=== PATIENT | male | born 1970 | race Caucasian/White ===

== ENCOUNTER → 2017-07-09 08:35 | Outpatient (CLI) | payer OTHER, SELFPAY ==
[2017-07-09 09:58] LABS: Eosinophils Percent Auto 1.8 % (2-4); Hematocrit 41.9 % (41-53); Hemoglobin 14.3 g/dL (13.5-17.5); Lymphocytes Percent Auto 28.2 % (25-40); Mean Corpuscular HGB Conc 34.2 % (30-36); Mean Corpuscular Hemoglobin 31.1 PG (26-34); Mean Corpuscular Volume 90.8 fL (80-100); Monocytes Percent Auto 8.8 % (3-14); Neutrophils Absolute Auto 3300 /uL (3000-5900); Neutrophils Percent Auto 60.2 % (50-75); Platelet Count 140 X10^3/uL (150-400); Red Blood Cell Count 4.61 X10^6/uL (4.5-5.9); Red Cell Distribution Width 12.9 % (11.6-14.8); White Blood Cell Count 5.5 X10^3/uL (4.5-11.0)
[2017-07-09 10:21] LABS: Alanine Aminotransferase 44 IU/L (21-72); Albumin 4.3 g/dL (3.5-5.0); Albumin Globulin Ratio 1.5 (1.0-2.8); Alkaline Phosphatase 49 U/L (38-126); Aspartate Aminotransferase 34 IU/L (17-59); Bilirubin Total 0.6 mg/dL (0.2-1.3); Calcium 9.5 mg/dL (8.4-10.2); Estimated Glomerular Filt Rate > 60.0 mL/min (>60); Globulin 2.9 g/dL (1.7-4.1); Glucose 89 mg/dL (70-100); HEMOLYSIS 21 (0-50); Lactate Dehydrogenase 368 U/L (313-618); Potassium 4.7 mmol/L (3.4-5.1); Sodium 142 mmol/L (137-145); Total Protein 7.2 g/dL (6.3-8.2)
[2017-07-09 10:22] LABS: Add Manual Diff / Slide Review SLIDE REVIEW
[2017-07-13 13:40] LABS: Alpha Fetoprotein 1.6 ng/mL (< 6.1)
[2017-07-21 20:55] LABS: HCG Quantitative /Beta subunit < 2.39 mIU/mL (<2.39)
== END ==
PROVIDERS: Family Provider Family Medicine; PCP Family Medicine; Visit Provider Nurse Practitioner Gerontology
DX: C62.92 Malignant neoplasm of left testis, unspecified whether descended or undescended (principal)
CPT/HCPCS: 36415; 80053; 82105; 83615; 84702; 85025

== ENCOUNTER → 2017-07-09 09:04 | Outpatient (CLI) | payer OTHER, SELFPAY ==
--- NOTE | 2017-07-09 09:06 | DI.RAD.S_ITS ---
PROCEDURE: XR CHEST 2V INDICATIONS: LAB DRAW/MALIGNANT NEOPLASM OF LEFT TESTIS TECHNIQUE: 2 views of the chest were acquired. COMPARISON: [facility], , CHEST 2 VIEW, 06/26/2016, 8:51. FINDINGS: Surgical changes and devices: Numerous surgical clips over the epigastric region. Lungs and pleura: No pleural effusions or pneumothorax. Lungs are clear. There is an asymmetrical radiodensity in the left apex above the first anterior rib, likely artifact but not seen previously and indeterminate. Apical lordotic view is suggested. Mediastinum: Mediastinal contours are normal. Heart size is normal. Bones and chest wall: No suspicious bony abnormalities. Soft tissues appear unremarkable. IMPRESSION: Probable normal chest. Ill-defined radiodensity left apex for which apical lordotic view is suggested. Dictated by: Eliazar Stafford M.D. on 07/09/2017 at 9:39 Approved by: Eliazar Stafford M.D. on 07/09/2017 at 9:42
--- NOTE | 2017-07-09 11:25 | PC.NURSE ---
labs noted, sees provider in 1 week.
--- NOTE | 2017-07-14 16:29 | PC.NURSE ---
Per Rita's request, informed pt that she would like one more view done for CXR. Requested pt have this done prior to his july 16 appt this Wednesday. He said he will try to do this. Per Rita, order is in computer.
== END ==
PROVIDERS: Family Provider Family Medicine; PCP Family Medicine; Visit Provider Nurse Practitioner Gerontology
DX: C62.92 Malignant neoplasm of left testis, unspecified whether descended or undescended (principal)
CPT/HCPCS: 36415; 71046; 80053; 82105; 83615; 84702; 85025

== ENCOUNTER → 2017-07-15 15:39 | Outpatient (CLI) | payer OTHER, SELFPAY ==
--- NOTE | 2017-07-15 | DI.RAD.S_ITS ---
PROCEDURE: XR CHEST 1V INDICATIONS: MALIGNANT NEOPLASM OF TESTIS TECHNIQUE: One view of the chest was acquired. COMPARISON: [facility], CR, XR CHEST 2V, 07/09/2017, 8:47. FINDINGS: Modified apical lordotic chest image shows no evidence of soft tissue mass in the left apex. IMPRESSION: Lung apices are clear. Dictated by: Eliazar Stafford M.D. on 07/15/2017 at 16:06 Approved by: Eliazar Stafford M.D. on 07/15/2017 at 16:08
== END ==
PROVIDERS: Family Provider Family Medicine; PCP Family Medicine; Visit Provider Nurse Practitioner Gerontology
DX: C62.90 Malignant neoplasm of unspecified testis, unspecified whether descended or undescended (principal)
CPT/HCPCS: 71045

== ENCOUNTER 2018-12-30 11:25 | Emergency (ER) | payer OTHER, SELFPAY ==
[2018-12-30 11:44] VITALS: BP 148/91; PULSE 74; RESP 18; TEMP 36.7; O2SAT 98
[2018-12-30 14:44] LABS: Bacteria Urine None Seen; RBC Urine None Seen (0-5/HPF); WBC Urine None Seen (0-5/HPF)
[2018-12-30 14:51] LABS: Appearance Urine UA CLEAR; Bilirubin Urine UA NEGATIVE (NEGATIVE); Color Urine UA YELLOW; Glucose Urine UA NEGATIVE (Negative); Ketones Urine UA NEGATIVE (NEGATIVE); Leukocyte Esterase Urine UA NEGATIVE (NEGATIVE); Nitrite Urine UA NEGATIVE (Negative); Occult Blood Urine UA NEGATIVE (Negative); Protein Urine UA NEGATIVE (Negative); Specific Gravity Urine UA <=1.005 (1.000-1.035); Urobilinogen Urine UA 0.2 E.U./dL (0.2)
[2018-12-30] MEDS: LIDOCAINE JELLY 2% 30 ML TOP (14:57)
[2018-12-30 15:03] LABS: Culture Indicated Urine Cult Not Indicated
[2018-12-30 15:04] LABS: Add Manual Diff / Slide Review NO; Basophils Absolute Auto 0 /uL (0-100); Basophils Percent Auto 0.4 % (0-2); Eosinophils Absolute Auto 100 /uL (0-450); Eosinophils Percent Auto 0.7 % (2-4); Hematocrit 42.5 % (41-53); Hemoglobin 14.3 g/dL (13.5-17.5); Lymphocytes Absolute Auto 1500 /uL (1100-4500); Lymphocytes Percent Auto 14.7 % (25-40); Mean Corpuscular HGB Conc 33.7 % (30-36); Mean Corpuscular Hemoglobin 31.1 PG (26-34); Mean Corpuscular Volume 92.4 fL (80-100); Monocytes Absolute Auto 500 /uL (0-900); Monocytes Percent Auto 4.9 % (3-14); Neutrophils Absolute Auto 8200 /uL (1500-7000); Neutrophils Percent Auto 79.3 % (50-75); Platelet Count 159 X10^3/uL (150-400); Red Cell Distribution Width 13.1 % (11.6-14.8); White Blood Cell Count 10.4 X10^3/uL (4.5-11.0)
[2018-12-30 15:16] LABS: Alanine Aminotransferase 34 IU/L (<50); Albumin 4.5 g/dL (3.5-5.0); Albumin Globulin Ratio 1.7 (1.0-2.8); Alkaline Phosphatase 50 U/L (38-126); Aspartate Aminotransferase 29 IU/L (17-59); BUN Creatinine Ratio 17.5 (6-22); Bilirubin Total 0.6 mg/dL (0.2-1.3); Blood Urea Nitrogen 14 mg/dL (9-20); Calcium 9.3 mg/dL (8.4-10.2); Carbon Dioxide 25 mmol/L (22-32); Chloride 106 mmol/L (98-107); Estimated Glomerular Filt Rate > 60.0 mL/min (>60); Globulin 2.6 g/dL (1.7-4.1); Glucose 101 mg/dL (70-100); HEMOLYSIS < 15 (0-50); Sodium 140 mmol/L (137-145); Total Protein 7.1 g/dL (6.3-8.2)
--- NOTE | 2018-12-30 15:26 | DI.CT.S_ITS ---
PROCEDURE: CT ABDOMEN PELVIS W CON INDICATIONS: severe rectal pain TECHNIQUE: After the administration of intravenous contrast, 5 mm thick sections acquired from the diaphragm to the symphysis. 5 mm coronal and sagittal reformats were acquired. For radiation dose reduction, the following was used: automated exposure control, adjustment of mA and/or kV according to patient size. COMPARISON: None. FINDINGS: Image quality: Excellent. ABDOMEN: Lung bases: Lung bases are clear. Heart size is normal. Solid organs: Liver is normal in size and enhancement. Gallbladder is unremarkable. Biliary system is non dilated. Pancreas enhances normally. Spleen is normal in size and enhancement. No adrenal nodules. Kidneys demonstrate normal size and enhancement, without hydronephrosis. Peritoneum and bowel: Focal area of thickening in the upper to mid rectum, (6/33). No enlargement or rectal lymph nodes identified. No free fluid. No acute inflammatory change identified. No mural enhancement identified. No small bowel obstruction. No pneumoperitoneum. Nodes and vessels: No retroperitoneal or mesenteric adenopathy by size criteria. Surgical clips from prior retroperitoneal lymph node dissection. Aorta and inferior vena cava are normal in size. Miscellaneous: No ventral hernias. PELVIS: Genitourinary: Bladder wall thickness is normal. Miscellaneous: No inguinal hernias or adenopathy. Bones: No suspicious bony lesions. No vertebral body compression fractures. IMPRESSION: 1. Focal thickening in the upper to mid rectum. This could be due to rectal cancer. Recommend proctoscopy and/or rectal MRI. 2. No enlargement or rectal lymph nodes. Findings of prior retroperitoneal lymph node dissection. 3. No metastatic disease identified. Comment: Findings were discussed with Dilma Newton at the time of dictation. Dictated by: Derikc Smith M.D. on 12/30/2018 at 16:02 Approved by: Derick Smith M.D. on 12/30/2018 at 16:11
--- NOTE | 2018-12-30 16:22 | ED_ITS ---
HPI - Abdominal Pain <KAUSHAL Moran - Last Filed: 12/30/18 21:30> General Chief Complaint: Abdominal Pain Stated Complaint: EXTREME PAIN BOWL MOVEMENT Time Seen by Provider: 12/30/18 13:41 Source: patient Mode of arrival: Ambulatory Limitations: no limitations History of Present Illness HPI narrative: 48-year-old male nonsmoker with history of testicular cancer presents with his for chief complaint of painful rectum x7 days. He was evaluated at his PCPs office, who referred him to the emergency department. He denies any fevers nausea vomiting or diarrhea. He states that his rectum hurts all the time, worse with sitting and bowel movements. He denies any dysuria urgency or frequency. Denies any abdominal pain. He states that the pain is nonradiating. He took a few doses of ibuprofen, but had no improvement. He denies any constipation, but states that having bowel movements has been painful, so he does not want to Related Data Home Medications Medication Instructions Recorded Confirmed [id number] K-lycop 1 tab PO DAILY 12/30/18 12/30/18 [Men's Multivitamin] Previous Rx's Medication Instructions Recorded ketorolac 10 mg PO TID #15 tab 12/30/18 Allergies Allergy/AdvReac Type Severity Reaction Status Date / Time No Known Drug Allergies Allergy Verified 12/30/18 11:47 Review of Systems <KAUSHAL Moran - Last Filed: 12/30/18 21:30> Review of Systems Narrative: GENERAL: Denies chills, fatigue, malaise, fever, sweats. HEENT: Denies sinus pain, ear pain, sore throat, difficulty swallowing, dizziness. RESPIRATORY: Denies dyspnea, cough, wheezing, hemoptysis, sputum. CARDIOVASCULAR: Denies chest pain, palpitations, orthopnea, edema, GASTROINTESTINAL: See HPI : Denies dysuria, frequency, incontinence, hematuria, urinary retention. MUSCULOSKELETAL: denies weakness, joint pain, or bony pain SKIN: Denies rash, skin lesions, or other NEUROLOGIC: Denies weakness, headache, numbness, change in speech, confusion, seizures, incoordination. PSYCHIATRIC: No concerning psychosocial issues. 12 point review of systems is negative except for those stated above Patient History <KAUSHAL Moran - Last Filed: 12/30/18 21:30> Medical History (Updated 12/30/18 @ 21:20 by SHELIA Moran) Testicular cancer (Acute) Social History Smoking Status: Never smoker alcohol intake frequency: 0-2 drinks per day Substance Use Type: does not use Exam <SHELIA Moran - Last Filed: 12/30/18 21:30> Narrative Exam Narrative: GENERAL: This is a well-nourished, well-developed patient, appears uncomfortable HEAD: Atraumatic. Normocephalic. No temporal or scalp tenderness. EYES: Pupils equal round and reactive. Extraocular motions intact. No scleral icterus. No injection or drainage. ENT: Nose without bleeding, purulent drainage or septal hematoma. Throat without erythema, tonsillar hypertrophy or exudate. Uvula midline. Airway patent. NECK: Trachea midline. No JVD or lymphadenopathy. Supple, nontender, no meningeal signs. CARDIOVASCULAR: Regular rate and rhythm without murmurs, gallops, or rubs. RESPIRATORY: Clear to auscultation. Breath sounds equal bilaterally. No wheezes, rales, or rhonchi. No cough. No increased respiratory effort. No accessory GASTROINTESTINAL: Abdomen soft, non-tender, nondistended. No hepato-splenome viviane, or palpable masses. No guarding. EXTREMITIES: No clubbing, cyanosis, or edema. No joint tenderness, effusion, or edema noted. BACK: Nontender without deformity or crepitance. No flank tenderness. NEURO: AOx3. SKIN: No rash or erythema. Rectal: With Kelsie RN at bedside, no obvious internal or external hernias. No evidence of external abscess. No pain to prostate palpation Initial Vital Signs Initial Vital Signs: Vital Signs Temperature 98.0 F 12/30/18 11:44 Pulse Rate 74 12/30/18 11:44 Respiratory Rate 18 12/30/18 11:44 Blood Pressure 148/91 H 12/30/18 11:44 Pulse Oximetry 98 12/30/18 11:44 <Tracy Tee DO - Last Filed: 12/31/18 01:58> Initial Vital Signs Initial Vital Signs: Vital Signs Temperature 98.0 F 12/30/18 11:44 Pulse Rate 74 12/30/18 11:44 Respiratory Rate 18 12/30/18 11:44 Blood Pressure 148/91 H 12/30/18 11:44 Pulse Oximetry 98 12/30/18 11:44 Course <SHELIA Moran - Last Filed: 12/30/18 21:30> Orders Ordered: Discontinued Medications Hydrocodone Bitart/Acetaminophen (Vicodin Prepack) 1 bottle MISC SEEINSTR ONE Stop: 12/30/18 21:14 Last Admin: 12/30/18 21:17 Dose: 1 bottle Documented by: FREDERICKEED Ketorolac Tromethamine (Toradol) 30 mg IV NOW ONE Stop: 12/30/18 17:15 Last Admin: 12/30/18 17:41 Dose: 30 mg Documented by: KIKE Ketorolac Tromethamine (Toradol 10mg Prepack) 1 bottle MISC SEEINSTR ONE Stop: 12/30/18 21:14 Last Admin: 12/30/18 21:17 Dose: 1 bottle Documented by: LREED Lidocaine HCl (Xylocaine Jelly 2%) 1 ml TOP NOW ONE Stop: 12/30/18 14:17 Last Admin: 12/30/18 14:57 Dose: 1 ml Documented by: KIKE Vital Signs Vital signs: Vital Signs - 8 hr 12/30/18 19:08 12/30/18 21:31 Pulse Rate 80 82 Respiratory Rate 16 18 Blood Pressure [Right Arm] 145/89 H 145/88 H Pulse Oximetry 98 98 <Tracy Tee DO - Last Filed: 12/31/18 01:58> Orders Ordered: Discontinued Medications Hydrocodone Bitart/Acetaminophen (Vicodin Prepack) 1 bottle MISC SEEINSTR ONE Stop: 12/30/18 21:14 Last Admin: 12/30/18 21:17 Dose: 1 bottle Documented by: FREDERICKEED Ketorolac Tromethamine (Toradol) 30 mg IV NOW ONE Stop: 12/30/18 17:15 Last Admin: 12/30/18 17:41 Dose: 30 mg Documented by: KIKE Ketorolac Tromethamine (Toradol 10mg Prepack) 1 bottle MISC SEEINSTR ONE Stop: 12/30/18 21:14 Last Admin: 12/30/18 21:17 Dose: 1 bottle Documented by: FREDERICKEED Lidocaine HCl (Xylocaine Jelly 2%) 1 ml TOP NOW ONE Stop: 12/30/18 14:17 Last Admin: 12/30/18 14:57 Dose: 1 ml Documented by: KIKE Vital Signs Vital signs: Vital Signs - 8 hr 12/30/18 19:08 12/30/18 21:31 Pulse Rate 80 82 Respiratory Rate 16 18 Blood Pressure [Right Arm] 145/89 H 145/88 H Pulse Oximetry 98 98 MDM - Abdominal Pain <Dilma Newton, HAND POTTER-BC - Last Filed: 12/30/18 21:30> Lab Data Result diagrams: 12/30/18 14:55 12/30/18 14:55 Labs: Lab Results 12/30/18 12/30/18 12/30/18 Range/Units 14:40 14:55 14:55 WBC 10.4 (4.5-11.0) X10^3/uL RBC 4.60 (4.5-5.9) X10^6/uL Hgb 14.3 (13.5-17.5) g/dL Hct 42.5 (41-53) % MCV 92.4 (80-100) fL MCH 31.1 (26-34) PG MCHC 33.7 (30-36) % RDW 13.1 (11.6-14.8) % Plt Count 159 (150-400) X10^3/uL Neut % (Auto) 79.3 H (50-75) % Lymph % (Auto) 14.7 L (25-40) % [place] % (Auto) 4.9 (3-14) % Eos % (Auto) 0.7 L (2-4) % Baso % (Auto) 0.4 (0-2) % Neut # (Auto) 8200 H (3197-0309) /uL Lymph # (Auto) 1500 (8343-0667) /uL [place] # (Auto) 500 (0-900) /uL Eos # (Auto) 100 (0-450) /uL Baso # (Auto) 0 (0-100) /uL Sodium 140 (137-145) mmol/L Potassium 4.0 (3.4-5.1) mmol/L Chloride 106 (98-107) mmol/L Carbon Dioxide 25 (22-32) mmol/L BUN 14 (9-20) mg/dL Creatinine 0.80 (0.66-1.25) mg/dL Estimated GFR > 60.0 (>60) mL/min BUN/Creatinine Ratio 17.5 (6-22) Glucose 101 H (70-100) mg/dL Calcium 9.3 (8.4-10.2) mg/dL Total Bilirubin 0.6 (0.2-1.3) mg/dL AST 29 (17-59) IU/L ALT 34 (<50) IU/L Alkaline Phosphatase 50 (38-126) U/L Total Protein 7.1 (6.3-8.2) g/dL Albumin 4.5 (3.5-5.0) g/dL Globulin 2.6 (1.7-4.1) g/dL Albumin/Globulin Ratio 1.7 (1.0-2.8) Urine Color Yellow Urine Appearance Clear Urine pH 7.0 (4.5-8.0) Ur Specific Holl[place] <=1.005 (1.000-1.035) Urine Protein Negative (Negative) Urine Glucose (UA) Negative (Negative) g/dL Urine Ketones Negative (NEGATIVE) Urine Occult Blood Negative (Negative) Urine Nitrate Negative (Negative) Urine Bilirubin Negative (NEGATIVE) Urine Urobilinogen 0.2 (0.2) E.U./dL Ur Leukocyte Esterase Negative (NEGATIVE) Urine RBC None seen (0-5/HPF) Urine WBC None seen (0-5/HPF) Urine Bacteria None seen (None) Ur Culture Indicated? Cult not indicated Imaging Data CT scan - abdomen: Radiologist's impression: [place] [address] CT Scan Report Signed Patient: Bennie Barth R#: [id number] : 1970Acct:[id number] Age/Sex: 48 / MDate of Service: 12/30/18 Loc: ED Accession Number: [id number] Procedure: CT abdomen pelvis w con Ordering Provider: Dilma Newton- PROCEDURE: CT ABDOMEN PELVIS W CON INDICATIONS: severe rectal pain TECHNIQUE: After the administration of intravenous contrast, 5 mm thick sections acquired from the diaphragm to the symphysis. 5 mm coronal and sagittal reformats were acquired. For radiation dose reduction, the following was used: automated exposure control, adjustment of mA and/or kV according to patient size. COMPARISON: None. FINDINGS: Image quality: Excellent. ABDOMEN: Lung bases: Lung bases are clear. Heart size is normal. Solid organs: Liver is normal in size and enhancement. Gallbladder is unremarkable. Biliary system is non dilated. Pancreas enhances normally. Spleen is normal in size and enhancement. No adrenal nodules. Kidneys demonstrate normal size and enhancement, without hydronephrosis. Peritoneum and bowel: Focal area of thickening in the upper to mid rectum, (6/33). No enlargement or rectal lymph nodes identified. No free fluid. No acute inflammatory change identified. No mural enhancement identified. No small bowel obstruction. No pneumoperitoneum. Nodes and vessels: No retroperitoneal or mesenteric adenopathy by size criteria. Surgical clips from prior retroperitoneal lymph node dissection. Aorta and in ferior vena cava are normal in size. Miscellaneous: No ventral hernias. PELVIS: Genitourinary: Bladder wall thickness is normal. Miscellaneous: No inguinal hernias or adenopathy. Bones: No suspicious bony lesions. No vertebral body compression fractures. IMPRESSION: 1. Focal thickening in the upper to mid rectum. This could be due to rectal cancer. Recommend proctoscopy and/or rectal MRI. 2. No enlargement or rectal lymph nodes. Findings of prior retroperitoneal lymph node dissection. 3. No metastatic disease identified. Comment: Findings were discussed with Dilma Newton at the time of dictation. Dictated by: Derick Smith M.D. on 12/30/2018 at 16:02 Approved by: Derick Smith M.D. on 12/30/2018 at 16:11 [facility] Narrative Medical decision making narrative: The patient is a 48-year-old male who presents with a chief complaint of rectal pain and pressure. His urine is clean, it is no pain to prostate palpation. This rules out prostatitis. He has no obvious hemorrhoid or abscess on exam. CT scan illustrate rectal inflammation, and suggests a rectal MRI in order to help rule out rectal cancer. This is concerning as the patient has a history of testicular cancer. The patient elected to have a MRI done in the emergency department as one was able to be scheduled. At 2100, I spoke with Radiology who states that the read will not be available tonight. I spoke with the patient and he requested to go home and I will call him with results tomorrow. Also contacted the patient's on-call regarding the patient's evaluation. I discussed at length measures to help prevent constipation including MiraLax, docusate, senna. Patient responded well to Toradol in the emergency department, so I gave him her prescription thereof with strict instructions down combined with any NSAIDs. I did give him a small take-home pack of [place]. Encourage PCP follow-up. Patient and have no questions or concerns upon discharge. State understanding of return precautions as well as importance of follow-up care. I spoke with Dr. Morgan regarding the patient prior to leaving the emergency department. <Tracy Tee, DO - Last Filed: 12/31/18 01:58> Lab Data Labs: Lab Results 12/30/18 12/30/18 12/30/18 Range/Units 14:40 14:55 14:55 WBC 10.4 (4.5-11.0) X10^3/uL RBC 4.60 (4.5-5.9) X10^6/uL Hgb 14.3 (13.5-17.5) g/dL Hct 42.5 (41-53) % MCV 92.4 (80-100) fL MCH 31.1 (26-34) PG MCHC 33.7 (30-36) % RDW 13.1 (11.6-14.8) % Plt Count 159 (150-400) X10^3/uL Neut % (Auto) 79.3 H (50-75) % Lymph % (Auto) 14.7 L (25-40) % B[place] % (Auto) 4.9 (3-14) % Eos % (Auto) 0.7 L (2-4) % Baso % (Auto) 0.4 (0-2) % Neut # (Auto) 8200 H (8039-7081) /uL Lymph # (Auto) 1500 (7402-9806) /uL [place] # (Auto) 500 (0-900) /uL Eos # (Auto) 100 (0-450) /uL Baso # (Auto) 0 (0-100) /uL Sodium 140 (137-145) mmol/L Potassium 4.0 (3.4-5.1) mmol/L Chloride 106 (98-107) mmol/L Carbon Dioxide 25 (22-32) mmol/L BUN 14 (9-20) mg/dL Creatinine 0.80 (0.66-1.25) mg/dL Estimated GFR > 60.0 (>60) mL/min BUN/Creatinine Ratio 17.5 (6-22) Glucose 101 H (70-100) mg/dL Calcium 9.3 (8.4-10.2) mg/dL Total Bilirubin 0.6 (0.2-1.3) mg/dL AST 29 (17-59) IU/L ALT 34 (<50) IU/L Alkaline Phosphatase 50 (38-126) U/L Total Protein 7.1 (6.3-8.2) g/dL Albumin 4.5 (3.5-5.0) g/dL Globulin 2.6 (1.7-4.1) g/dL Albumin/Globulin Ratio 1.7 (1.0-2.8) Urine Color Yellow Urine Appearance Clear Urine pH 7.0 (4.5-8.0) Ur Specific Holl[place] <=1.005 (1.000-1.035) Urine Protein Negative (Negative) Urine Glucose (UA) Negative (Negative) g/dL Urine Ketones Negative (NEGATIVE) Urine Occult Blood Negative (Negative) Urine Nitrate Negative (Negative) Urine Bilirubin Negative (NEGATIVE) Urine Urobilinogen 0.2 (0.2) E.U./dL Ur Leukocyte Esterase Negative (NEGATIVE) Urine RBC None seen (0-5/HPF) Urine WBC None seen (0-5/HPF) Urine Bacteria None seen (None) Ur Culture Indicated? Cult not indicated Discharge Plan Departure Patient Disposition: Home Clinical Impression: Anal or rectal pain Discharge Date/Time: 12/30/18 21:31 Instructions: Constipation (Alternative Therapy), DI for Constipation Activity Restrictions/Additional Instructions: Please follow up with primary care provider in the next few days. Your CT scan today shows rectal inflammation. There is no evidence of infection, diverticulitis, small-bowel obstruction abscess etc. Your urine sample is clean. As discussed, it would take long time to get a read of your MRI tonight, so I will call you with the results tomorrow. For your constipation, I recommend MiraLax, docusate, and senna. Docusate is a stool softener. Senna is a laxative. Please the sure that your well-hydrated and eat lots of fiber. I have given you a prescription of Toradol. This is an NSAID. Do not combine it with other NSAIDs such as Aleve or ibuprofen. I suggest taking it with some food, as it can irritate your stomach. I have sent this prescription to [facility]. Prescriptions: New ketorolac 10 mg tablet 10 mg PO TID Qty: 15 RF: 0 No Action Men's Multivitamin 400-20-300 mcg Tablet 1 tab PO DAILY RF: 0 Referrals: Raymundo Lynch MD [Primary Care Provider] -
--- NOTE | 2018-12-30 16:47 | DI.MRI.S_ITS ---
PROCEDURE: MR PELIS WO/W CON INDICATIONS: Abnormal CT. TECHNIQUE: Coronal HASTE, sagittal T2 FSE, axial T1 FSE, axial and coronal nonbreath-hold T2 FSE. Axial dynamic VIBE during administration of contrast. Post-contrast axial and coronal VIBE/2-D FLASH with fat saturation from the iliac crests to the symphysis. Optional diffusion weighted imaging and ADC may be performed. COMPARISON: [facility], CT, CT ABDOMEN PELVIS W CON, 12/30/2018, 15:41. FINDINGS: Image quality: Excellent. About 6.5 cm above the anorectal junction, there is a persistent area of fixed stricture for length of 1.8 cm. Questionable mildly T2 bright sessile lesion is seen (series 4 image 29). Postcontrast, there is moderate mucosal enhancement in this segment as well as a second area of rectal narrowing/spasm about 4 cm more cranial. There is no extension of enhancement through the muscularis. No spiculation of the perirectal fat. No perirectal lymph nodes or pelvic sidewall nodes. Patient is post left orchiectomy. No inguinal adenopathy or hernia. The urinary bladder is partially decompressed but the wall is normal thickness. The prostate gland appears normal. Osseous structures are normal in signal. Visible bowel loops are otherwise within normal limits IMPRESSION: 1. Questionable T1 rectal lesion approximately 6.5 cm above the anorectal junction versus mild mucosal inflammation. There is no evidence of disease extension through the muscularis or local adenopathy. Colonoscopy is recommended for further evaluation and possible tissue acquisition. 2. More questionable, second area of mucosal enhancement about 10 cm above the erect junction, most likely spasm although mucosal lesion is not excluded. 3. Post left orchiectomy. Dictated by: Antonia Pope M.D. on 12/30/2018 at 22:35 Approved by: Antonia Pope M.D. on 12/30/2018 at 22:57
[2018-12-30 16:58] VITALS: BP 151/97; PULSE 73; RESP 16; O2SAT 100
[2018-12-30] MEDS: KETOROLAC 60 MG/2 ML VIAL 30 MG IV (17:41)
[2018-12-30 17:45] VITALS: BP 156/99; PULSE 71; O2SAT 98
[2018-12-30 19:08] VITALS: BP 145/89; PULSE 80; RESP 16; O2SAT 98
--- NOTE | 2018-12-30 19:30 | PC.NURSE ---
Patient ambulatory around room. Drinking ice water. Denies needs at this time, awaiting MRI results
[2018-12-30] MEDS: HYDROCODONE/ACET 5/325 PREPACK 1 BOTTLE MISC (21:17)
[2018-12-30] MEDS: KETOROLAC 10MG PREPACK 1 BOTTLE MISC (21:17)
[2018-12-30 21:31] VITALS: BP 145/88; PULSE 82; RESP 18; O2SAT 98
== END 2018-12-30 21:31 | disposition home or self-care (01) ==
PROVIDERS: Emergency Provider Nurse Practitioner Family; Family Provider Family Medicine; PCP Family Medicine
DX: K62.89 Other specified diseases of anus and rectum (principal)
CPT/HCPCS: 36415; 72197; 74177; 80053; 81001; 85025; 96374; 99283; 99285; A9579; J1885

== ENCOUNTER 2019-01-04 14:16 | Day surgery (SDC) | payer OTHER, SELFPAY ==
[2019-01-04] VITALS (7 sets, daily range): BP systolic 147–163; BP diastolic 93–114; PULSE 70–83; RESP 10–96; TEMP 36.2–36.7; O2SAT 97–98; BMI 27.2
--- NOTE | 2019-01-04 15:00 | PM.PREOP ---
Pre-operative Note Interval Note History & Physical reviewed/Exam performed by Physician: Yes Changes to H&P: No H&P completed within 30 days and has changed as indicated here:: see note from yesterday
[2019-01-04] MEDS: LACTATED RINGERS 1,000 ML 100 ML IV ×2 (15:30→16:49)
[2019-01-04] MEDS: BUPIVACAINE 0.5% (PF) VIAL 30 ML INJ (16:30)
--- NOTE | 2019-01-04 16:44 | SUR.OPER ---
DRESSINGS: IODOFORM PACKING, 4 X 4'S ABD, MESH PANTS
--- NOTE | 2019-01-04 16:47 | PM.OP.1 ---
Operative Date/Time/Diagnoses Date of procedure: 01/04/19 Time of procedure: 16:48 Pre-op diagnosis: Perirectal pain and abnormal CT and MRI Post-op diagnosis: same Procedure & Clinicians Procedure: Flexible sigmoidoscopy. Exam under anesthesia and exploration into the intersphincteric so spit and perirectal space Same procedure as scheduled: Yes Indications: Severe rectal pain uncertain cause Click Yes if Unassisted: Yes Anesthesia Type: General Operative Notes Findings: No evidence of mucosal abnormality on flexible sigmoidoscopy to 30 cm. Fullness in the right rectal wall on palpation. On incision into the intersphincteric groove region and minimal dissection I dropped into a cavity which drained a small amount of clear fluid. There was no marcelino pus. Closure Type: not applicable Specimen(s): none sent Estimated Blood Loss (mL): 5 Blood products transfused: none Procedure in detail: Patient was placed supine on his bed and underwent general LMA anesthesia. Rectal exam was performed and colonoscope inserted and advanced to 30 cm. The there was some mucoid material but otherwise the colon was free of any stool whatsoever. The mucoid material was suctioned out and had an excellent view of the wall of the colon. I examined the colon from 30 cm out in re-examined the area from 20 cm out the lesion on scanning was at about 6.5 cm from the anal verge. There was nothing in this area. I retroflexed view also was normal. The scope was removed. The patient was placed po-knife prone on the operating room table and prepped and draped in the usual fashion. Careful digital exam revealed a fullness in the right rectal wall. This is the area on his scanning with the lesion would be. I made a small incision in the intersphincteric groove and dissected proximally for short distance and I dropped into a cavity. There was night drainage though except for small amount of clear fluid. I irrigated the area and felt with an instrument in the cavity to the area the fullness on the rectum and we appeared to be at the right level. I a withdrew the instrument packed the area open with half-inch iodoform gauze. Local anesthetic was infiltrated around the incision area once I cleaned it with Betadine. I did not use a great deal of material but enough to get above the soft tissues to the level the cavity. Dressing was applied and the patient was placed back on his bed extubated and taken recovery area in good condition. Complications: none Post-operative Condition: stable Disposition: PACU
[2019-01-04] MEDS: fentaNYL 100 MCG/2 ML INJ IV (17:07)
--- NOTE | 2019-01-04 17:15 | SUR.PHASEI ---
BP with elevated BP - close to baseline. Dr. Thompson aware. Pt medicated with fentanyl.
--- NOTE | 2019-01-04 17:16 | SUR.PHASEI ---
Dr. Blackburn at bedside, spoke with pt about proceedure.
== END 2019-01-04 17:55 | disposition home or self-care (01) ==
PROVIDERS: Family Provider Family Medicine; PCP Family Medicine; Visit Provider Specialist
PROC: 0DJD8ZZ Inspection of Lower Intestinal Tract, Via Natural or Artificial Opening Endoscopic (ICD-10-PCS; CPT 45378; principal; 2019-01-04 15:15)
DX: K62.89 Other specified diseases of anus and rectum (principal); R93.89 Abnormal findings on diagnostic imaging of other specified body structures; Z85.47 Personal history of malignant neoplasm of testis
CPT/HCPCS: 45990; 45330; J1100; J2405; J2704; J3010

== ENCOUNTER → 2019-02-13 12:41 | Outpatient (CLI) | payer OTHER, SELFPAY ==
--- NOTE | 2019-02-13 12:42 | DI.MRI.S_ITS ---
PROCEDURE: MR PELVIS WO/W CON INDICATIONS: Abnormal MRI of pelvis. Follow-up exam. Rule out tumor TECHNIQUE: Coronal HASTE, sagittal breath-hold T2 FSE; axial T1 FSE with and without fat saturation through the pelvis. Optional long- and short-axis uterine nonbreath-hold T2 FSE through the uterus. Sagittal or axial dynamic VIBE during administration of contrast. Post-contrast axial or coronal VIBE/2-D FLASH with fat saturation from the iliac crests to the symphysis. Optional diffusion weighted imaging and ADC may be performed. COMPARISON: , MR, MR PELVIS WO/W CON, 12/30/2018, 17:47. FINDINGS: Image quality: Excellent. As identified on prior exam, there is a persistent appearance of T1 signal focus as well as enhancement approximately 6 cm superior to the anal rectal junction. This is not significantly changed compared to prior exam. The second focus of concerning enhancement identified on prior exam approximately 4 cm cranial to the above mentioned focus is not as well seen on today's exam. No perirectal lymph nodes are identified. No inguinal hernias are identified. Bladder is mildly distended with a diffusely thickened wall. Prostate gland appears grossly normal. Osseous structures are intact. Visualized bowel loops are nonobstructed. IMPRESSION: L. Persistent focus of a rectal lesion approximately 6 cm superior to the anal rectal junction. It has not significantly changed compared to prior exam. No regional adenopathy is identified. As previously noted, further evaluation with colonoscopy or tissue sampling is recommended as neoplasm cannot be definitively excluded. 2. Second focus of previously identified mucosal enhancement superior to the above noted region is not visualized on current exam. Dictated by: Keily Heredia M.D. on 02/14/2019 at 16:49 Approved by: Keily Heredia M.D. on 02/14/2019 at 16:56
== END ==
PROVIDERS: Family Provider Family Medicine; PCP Family Medicine; Visit Provider Specialist
DX: R93.5 Abnormal findings on diagnostic imaging of other abdominal regions, including retroperitoneum (principal); K62.89 Other specified diseases of anus and rectum
CPT/HCPCS: 72197; A9579

== ENCOUNTER → 2020-02-14 17:10 | Outpatient (CLI) | payer OTHER, SELFPAY ==
--- NOTE | 2020-02-14 | DI.MRI.S_ITS ---
PROCEDURE: MR SHOULDER RT WO CON INDICATIONS: PAIN IN RIGHT SHOULDER TECHNIQUE: Noncontrast oblique coronal T2 fast spin echo with fat saturation, oblique sagittal T1 spin echo and T2 fast spin echo with fat saturation, axial T1 spin echo and T2 fast spin echo with fat saturation through the shoulder. COMPARISON: None. FINDINGS: Image quality: Excellent. Rotator cuff: Tendinosis and low-grade articular and bursal surface partial thickness tear involving distal supraspinatus at its insertion on the humeral head is seen extending to musculotendinous junction. Distal infraspinatus tendinosis is seen. Distal subscapularis tendinosis and low-grade intrasubstance partial-thickness tear is noted. Sagittal images demonstrate no significant muscle atrophy. Bones and bursae: No bone marrow contusions or fractures. Moderate acromioclavicular joint osteoarthritic changes are seen with downward osteophyte formation depressing the musculotendinous junction of supraspinatus. The acromion demonstrates conventional anatomy, without an os acromiale. No pathologic subacromial-subdeltoid or subcoracoid bursal fluid is present. Capsule and soft tissues: In the absence of intra-articular contrast, there is suggestion of superior anterior labral tear at 12 to 2 o'clock position. The glenohumeral ligaments appear intact. The long head of the biceps tendon demonstrates normal location and morphology. The rotator interval appears normal, without fibrosis. The coracohumeral ligament is normal in thickness. IMPRESSION: 1. Tendinosis and low-grade articular and bursal surface partial thickness tear involving distal supraspinatus extending to musculotendinous junction. Distal infraspinatus and subscapularis tendinosis. Low-grade intrasubstance partial-thickness tear involving distal subscapularis. No full-thickness rotator cuff tendon rupture. 2. Moderate acromioclavicular joint osteoarthritis. 3. Suggestion of superior anterior labral tear at 12 to 2 o'clock position. Dictated by: Percy Bain M.D. on 02/15/2020 at 9:28 Approved by: Percy Bain M.D. on 02/15/2020 at 9:43
--- NOTE | 2020-02-14 | DI.MRI.S_ITS ---
PROCEDURE: MR PELIS WO/W CON INDICATIONS: RECTAL MASS TECHNIQUE: Coronal HASTE, sagittal T2 FSE, axial T1 FSE, axial and coronal nonbreath-hold T2 FSE. Axial dynamic VIBE during administration of contrast. Post-contrast axial and coronal VIBE/2-D FLASH with fat saturation from the iliac crests to the symphysis. Optional diffusion weighted imaging and ADC may be performed. COMPARISON: [facility], , MR PELVIS WO/W CON, 02/13/2019, 12:42. FINDINGS: Image quality: Excellent. Rectum: There is a persistent relative narrowing of similar morphology compared to prior studies in the mid rectum at an area of genu for a length of about 2.3 cm. The muscularis and serosal surface signal remains normal. No evidence of focal T2 hyperintense lesion. No suspicious enhancement. Lymph nodes: No pathologically enlarged pelvic sidewall, iliac or inguinal lymph nodes. Other bowel and peritoneum: No pathologic free pelvic fluid. More proximal colon and small bowel loops are normal in caliber. Genitourinary: The prostate gland is normal size. The urinary bladder demonstrates normal wall thickness. Distal ureters are nondilated. Patient is status post left orchiectomy. There is a tiny right fat containing inguinal hernia. Bones: Marrow is normal in overall signal. IMPRESSION: 1. There is stable morphology of the mid rectum at an area of genu which demonstrates a relative narrowing without suspicious features, presumably physiologic. No suspicious rectal mass was identified. 2. No pelvic adenopathy. 3. Post left orchiectomy. 4. Tiny fat containing right inguinal hernia. Dictated by: Antonia Pope M.D. on 02/15/2020 at 8:56 Approved by: Antonia Pope M.D. on 02/15/2020 at 9:15
== END ==
PROVIDERS: Family Provider Family Medicine; PCP Family Medicine; Referring Provider Orthopaedic Surgery Foot and Ankle Surgery; Visit Provider Orthopaedic Surgery Foot and Ankle Surgery
DX: M25.511 Pain in right shoulder (principal); M75.111 Incomplete rotator cuff tear or rupture of right shoulder, not specified as traumatic; M19.011 Primary osteoarthritis, right shoulder
CPT/HCPCS: 72197; 73221; A9579

== ENCOUNTER → 2020-05-17 15:32 | Outpatient (CLI) | payer OTHER, SELFPAY ==
[2020-05-17] MEDS: COVID-19 VACC #1, MRNA(MOD) 100 MCG/0.5 ML VIAL IM (15:38)
== END ==
PROVIDERS: Family Provider Family Medicine; PCP Family Medicine; Visit Provider Internal Medicine
DX: Z23 Encounter for immunization (principal)
CPT/HCPCS: 0011A; 91301

== ENCOUNTER → 2020-06-14 15:55 | Outpatient (CLI) | payer OTHER, SELFPAY ==
[2020-06-14] MEDS: COVID-19 VACC #2, MRNA(MOD) 100 MCG/0.5 ML VIAL IM (16:13)
== END ==
PROVIDERS: Family Provider Family Medicine; PCP Family Medicine; Visit Provider Internal Medicine
DX: Z23 Encounter for immunization (principal)
CPT/HCPCS: 0012A; 91301

== ENCOUNTER 2021-10-08 00:05 | Inpatient (IN) | payer BC, SELFPAY ==
[2021-10-08] VITALS (32 sets, daily range): BP systolic 110–160; BP diastolic 57–110; PULSE 62–82; RESP 12–23; TEMP 36.3–37; O2SAT 92–98; BMI 26.4; BMI 26.8
--- NOTE | 2021-10-08 00:26 | ED_ITS ---
HPI - General Adult General Chief complaint: Allergic Reaction Stated complaint: ABD Pain/ Hives Time Seen by Provider: 10/08/21 00:26 History of Present Illness HPI narrative: 51-year-old gentleman with history of testicular cancer presents with acute onset severe abdominal pain causing hive-like reaction due to the severity of the pain. He arrives via medics quite literally quivering secondary to the pain trying to use cooperative as he is able to. Notes that the pain began on the , they were out of town and went to a walk-in clinic it resolved and he was told to follow-up with the primary care physician. He had been doing fairly well until significant pain today. He describes no chest pain, palpitations, diarrhea, vomiting, lower extremity edema Related Data Home Medications Medication Instructions Recorded Confirmed [id number] acid 400 1 tab PO DAILY 12/30/18 02/03/21 mcg-vit K 20 mcg-lycop 300 mcg tablet (Men's Multivitamin) Allergies Allergy/AdvReac Type Severity Reaction Status Date / Time No Known Drug Allergies Allergy Verified 03/01/19 10:55 Review of Systems Review of Systems Narrative: Remainder of complete review of systems is otherwise unremarkable except for that included in the HPI. Patient History Medical History (Updated 10/08/21 @ 02:47 by Aurelia Avila MD) Testicular cancer Surgical History (Updated 01/23/19 @ 10:57 by Krystyna Urbina MD) History of orchiectomy Hx of lymph node excision Family History Brother Hypertension Social History household members: spouse Smoking Status: Never smoker alcohol intake: current Smoking Status: Never smoker alcohol intake frequency: 0-2 drinks per day Substance Use Type: does not use Exam Initial Vital Signs Initial Vital Signs: Vital Signs Temperature 98.5 F 10/08/21 00:21 Pulse Rate 67 10/08/21 00:21 Respiratory Rate 20 10/08/21 00:21 Blood Pressure 160/110 H 10/08/21 00:21 Pulse Oximetry 98 10/08/21 00:21 Oxygen Delivery Method 10/08/21 00:21 General: In severe distress. Dramatic hives over his torso HEENT: Moist mucous membranes, normal sclera with reactive pupils, Neck: No JVD, supple, no cervical adenopathy Respiratory: Lungs are clear to auscultation, no wheezing no rales no rhonchi. Full and symmetrical air movement Cardiac: Tachycardic without murmurs Abdomen: Soft, significant tenderness without guarding and complaints of severe parade is and covered with urticarial rash Skin: Warm and dry, urticarial rash over the entire torso Neurologic: Grossly neurologically intact with no obvious asymmetries or abnormalities Extremities: No trauma, well perfused Psych: Cooperative, appropriate insight and affect Course Orders Ordered: ED Orders 10/08/21 EKG-12 Lead Routine 10/08/21 00:15 Complete Blood Count AUTO DIFF Stat Comprehensive Metabolic Panel Stat Lipase Stat Troponin & CK Cardiac Panel Stat 10/08/21 00:31 CT abdomen pelvis w con Stat 10/08/21 02:25 COVID19 -Nasal RAPID/Pre-Proc Stat Hydromorphone HCl (Hydromorphone 0.5 Mg Inj) 0.5 mg IV Q15MIN PRN PRN Reason: Pain, Last Admin: 10/08/21 00:57 Dose: 0.5 mg Documented By: SONIA Sodium Chloride (Normal Saline 0.9%) 1,000 mls @ 125 mls/hr IV CONT EDWARD Last Admin: 10/08/21 04:54 Dose: 125 mls/hr Documented By: SONIA Discontinued Medications Famotidine (Famotidine 20 Mg/2 Ml Vial) 20 mg IV NOW ONE Stop: 10/08/21 00:32 Last Admin: 10/08/21 00:57 Dose: 20 mg Documented By: SONIA Sodium Chloride (Normal Saline 0.9%) 1,000 mls @ 1,000 mls/hr IV BOLUS ONE Stop: 10/08/21 01:29 Last Infusion: 10/08/21 02:44 Dose: 0 mls/hr Documented By: Admin: 10/08/21 00:57 Dose: 1,000 mls/hr Documented By: SONIA Methylprednisolone (Methylprednisolone 125 Mg/2 Ml Vial) 125 mg IV NOW ONE Stop: 10/08/21 00:31 Last Admin: 10/08/21 00:57 Dose: 125 mg Documented By: SONIA Vital Signs Vital signs: Vital Signs - 8 hr 10/08/21 00:21 10/08/21 01:02 10/08/21 01:02 Temperature 98.5 F Pulse Rate 67 70 Respiratory Rate 20 18 Blood Pressure 160/110 H 128/86 Pulse Oximetry 98 96 Oxygen Delivery Method Room Air 10/08/21 01:30 10/08/21 01:30 10/08/21 02:00 Temperature Pulse Rate 62 Respiratory Rate 16 Blood Pressure 114/68 110/57 L Pulse Oximetry 94 Oxygen Delivery Method 10/08/21 02:00 10/08/21 02:30 10/08/21 02:30 Temperature Pulse Rate 68 79 Respiratory Rate 13 23 Blood Pressure 115/74 Pulse Oximetry 93 95 Oxygen Delivery Method Medical Decision Making Lab Data Result diagrams: 10/08/21 00:15 10/08/21 00:15 Labs: Lab Results 10/08/21 10/08/21 10/08/21 Range/Units 00:15 00:15 00:15 WBC 6.8 (4.5-11.0) X10^3/uL RBC 4.73 (4.5-5.9) X10^6/uL Hgb 14.6 (13.5-17.5) g/dL Hct 43.4 (41-53) % MCV 91.7 (80-100) fL MCH 30.8 (26-34) PG MCHC 33.6 (30-36) % RDW 12.9 (11.6-14.8) % Plt Count 145 L (150-400) X10^3/uL Neut % (Auto) 35.3 L (50-75) % Lymph % (Auto) 51.4 H (25-40) % Bell % (Auto) 9.2 (3-14) % Eos % (Auto) 3.5 (2-4) % Baso % (Auto) 0.6 (0-2) % Neut # (Auto) 2400 (3040-5420) /uL Lymph # (Auto) 3500 (5531-3629) /uL Bell # (Auto) 600 (0-900) /uL Eos # (Auto) 200 (0-450) /uL Baso # (Auto) 0 (0-100) /uL Sodium 137 (137-145) mmol/L Potassium 4.0 (3.4-5.1) mmol/L Chloride 103 (98-107) mmol/L Carbon Dioxide 26 (22-32) mmol/L BUN 18 (9-20) mg/dL Creatinine 0.87 (0.66-1.25) mg/dL Estimated GFR > 60 (>60) mL/min BUN/Creatinine Ratio 20.7 (6-22) Glucose 102 H (70-100) mg/dL Calcium 9.0 (8.4-10.2) mg/dL Total Bilirubin 0.5 (0.2-1.3) mg/dL AST 29 (17-59) IU/L ALT 34 (<50) IU/L Alkaline Phosphatase 38 (38-126) U/L Total Creatine Kinase 59 (55-170) U/L CK-MB (CK-2) TNP CK-MB (CK-2) Rel Index TNP Troponin I < 0.012 (0.01-0.034) ng/mL Total Protein 6.6 (6.3-8.2) g/dL Albumin 4.0 (3.5-5.0) g/dL Globulin 2.6 (1.7-4.1) g/dL Albumin/Globulin Ratio 1.5 (1.0-2.8) Lipase (23-300) U/L SARS-CoV-2 (PCR) (Negative) 10/08/21 10/08/21 Range/Units 00:15 02:25 WBC (4.5-11.0) X10^3/uL RBC (4.5-5.9) X10^6/uL Hgb (13.5-17.5) g/dL Hct (41-53) % MCV (80-100) fL MCH (26-34) PG MCHC (30-36) % RDW (11.6-14.8) % Plt Count (150-400) X10^3/uL Neut % (Auto) (50-75) % Lymph % (Auto) (25-40) % Bell % (Auto) (3-14) % Eos % (Auto) (2-4) % Baso % (Auto) (0-2) % Neut # (Auto) (7272-0052) /uL Lymph # (Auto) (2410-5457) /uL Bell # (Auto) (0-900) /uL Eos # (Auto) (0-450) /uL Baso # (Auto) (0-100) /uL Sodium (137-145) mmol/L Potassium (3.4-5.1) mmol/L Chloride (98-107) mmol/L Carbon Dioxide (22-32) mmol/L BUN (9-20) mg/dL Creatinine (0.66-1.25) mg/dL Estimated GFR (>60) mL/min BUN/Creatinine Ratio (6-22) Glucose (70-100) mg/dL Calcium (8.4-10.2) mg/dL Total Bilirubin (0.2-1.3) mg/dL AST (17-59) IU/L ALT (<50) IU/L Alkaline Phosphatase (38-126) U/L Total Creatine Kinase (55-170) U/L CK-MB (CK-2) CK-MB (CK-2) Rel Index Troponin I (0.01-0.034) ng/mL Total Protein (6.3-8.2) g/dL Albumin (3.5-5.0) g/dL Globulin (1.7-4.1) g/dL Albumin/Globulin Ratio (1.0-2.8) Lipase 3374 H (23-300) U/L SARS-CoV-2 (PCR) Negative (Negative) Imaging Data CT scan - abdomen/pelvis: Radiologist's Impression: FINDINGS: Image quality: Excellent. Lung bases: Clear Heart: No significant findings. ABDOMEN: Liver: No masses Gallbladder: Normal wall thickness. Biliary ducts: Nondilated. Pancreas: Normal. Spleen: Normal size. Adrenal Glands: No nodules. Kidneys and Ureters: Normal enhancement. No hydronephrosis or hydroureter. No calcifications. Stomach and Bowel: There is diffuse circumferential wall thickening of several loops of central proximal small bowel. There are several areas trace interloop fluid. A few pelvic small bowel loops are slightly dilated with air-fluid levels but with normal wall thickness. The colon demonstrates semi solid a solid stool without suspicious wall thickening. There is a normal appendix. Peritoneum: There is trace fluid layering in the pericolic gutters. No focal fluid collections or extraluminal gas. Ventral Wall: No hernias. Abdominal Nodes: Numerous surgical clips throughout the periaortic retroperitoneum. No retroperitoneal adenopathy. Normal size lymph nodes in the mesentery. No sana picious mass. Vessels: Aorta and inferior vena cava are normal in size. PELVIS: Pelvic Organs: Mild prostatomegaly. Surgical change of prior left orchiectomy. Bladder: Unremarkable. Pelvic Nodes: No enlarged lymph nodes. Miscellaneous: No hernias are seen. Bones: Unremarkable. IMPRESSION: 1. Proximal small bowel wall thickening and diffuse mild mesenteric inflammation suggesting enteritis, either infectious or inflammatory. Less likely causes would be allergy or autoimmune disease. Correlate clinically. 2. Prior changes of retroperitoneal dissection and left orchiectomy. Dictated by: Antonia Pope M.D. on 10/08/2021 at 1:42 MDM Narrative Medical decision making narrative: 51-year-old gentleman who is seen on Wednesday with mild abdominal pain mildly elevated lipase at that time per outpatient labs in or again. Had an unremarkable weekend and then acute onset of severe abdominal pain today associated with dramatic urticarial reaction. He was given Benadryl by the medics in route, Solu-Medrol Pepcid and Dilaudid for pain once he arrived in the emergency department. Labs were ordered a CT scan was done. Labs show significantly elevated lipase at [address] scan suggesting no pancreatic abnormalities but some mild mesenteric inflammation suggesting enteritis. On re-evaluation, the patient is definitely feeling better after the Solu-Medrol and Dilaudid. In reviewing findings, he has no obvious explanation for his pancreatitis. He does not take prescription medications minimal alcohol use, no recreational drugs. CT scan does not suggest gallstone pancreatitis or masses that might be causing obstructive pancreatitis. Findings reviewed with patient, will recommend hospitalization, IV fluid maintenance pain control and once lipase begins decreasing advancing diet as tolerated. Patient's primary care doctors Dr. Chandra and he will be admitted to Dr. Sanchez who is covering this evening Discharge Plan Departure Patient Disposition: Admitted as Observation Clinical Impression: Acute urticaria Acute pancreatitis Qualifiers: Pancreatitis type: unspecified pancreatitis type Acute pancreatitis complication: no infection or necrosis Qualified Code(s): K85.90 - Acute pancreatitis without necrosis or infection, unspecified Admit Date/Time: 10/08/21 02:53 Admit Provider: Frederick Sanchez
--- NOTE | 2021-10-08 00:31 | DI.CT.S_ITS ---
PROCEDURE: CT ABDOMEN PELVIS W CON INDICATIONS: abdominal pain TECHNIQUE: After the administration of intravenous contrast, axial sections acquired from the lung bases to the pubic symphysis. Coronal and sagittal reformats were performed. For radiation dose reduction, the following was used: automated exposure control, adjustment of mA and/or kV according to patient size. COMPARISON: [facility], CT, CT ABDOMEN PELVIS W CON, 12/30/2018, 15:41. FINDINGS: Image quality: Excellent. Lung bases: Clear Heart: No significant findings. ABDOMEN: Liver: No masses Gallbladder: Normal wall thickness. Biliary ducts: Nondilated. Pancreas: Normal. Spleen: Normal size. Adrenal Glands: No nodules. Kidneys and Ureters: Normal enhancement. No hydronephrosis or hydroureter. No calcifications. Stomach and Bowel: There is diffuse circumferential wall thickening of several loops of central proximal small bowel. There are several areas trace interloop fluid. A few pelvic small bowel loops are slightly dilated with air-fluid levels but with normal wall thickness. The colon demonstrates semi solid a solid stool without suspicious wall thickening. There is a normal appendix. Peritoneum: There is trace fluid layering in the pericolic gutters. No focal fluid collections or extraluminal gas. Ventral Wall: No hernias. Abdominal Nodes: Numerous surgical clips throughout the periaortic retroperitoneum. No retroperitoneal adenopathy. Normal size lymph nodes in the mesentery. No suspicious mass. Vessels: Aorta and inferior vena cava are normal in size. PELVIS: Pelvic Organs: Mild prostatomegaly. Surgical change of prior left orchiectomy. Bladder: Unremarkable. Pelvic Nodes: No enlarged lymph nodes. Miscellaneous: No hernias are seen. Bones: Unremarkable. IMPRESSION: 1. Proximal small bowel wall thickening and diffuse mild mesenteric inflammation suggesting enteritis, either infectious or inflammatory. Less likely causes would be allergy or autoimmune disease. Correlate clinically. 2. Prior changes of retroperitoneal dissection and left orchiectomy. Dictated by: Antonia Pope M.D. on 10/08/2021 at 1:42 Approved by: Antonia Pope M.D. on 10/08/2021 at 1:49
[2021-10-08 00:37] LABS: Add Manual Diff / Slide Review NO; Basophils Absolute Auto 0 /uL (0-100); Basophils Percent Auto 0.6 % (0-2); Eosinophils Absolute Auto 200 /uL (0-450); Eosinophils Percent Auto 3.5 % (2-4); Hematocrit 43.4 % (41-53); Hemoglobin 14.6 g/dL (13.5-17.5); Lymphocytes Absolute Auto 3500 /uL (1100-4500); Lymphocytes Percent Auto 51.4 % (25-40); Mean Corpuscular HGB Conc 33.6 % (30-36); Mean Corpuscular Hemoglobin 30.8 PG (26-34); Mean Corpuscular Volume 91.7 fL (80-100); Monocytes Absolute Auto 600 /uL (0-900); Monocytes Percent Auto 9.2 % (3-14); Neutrophils Absolute Auto 2400 /uL (1500-7000); Neutrophils Percent Auto 35.3 % (50-75); Platelet Count 145 X10^3/uL (150-400); Red Blood Cell Count 4.73 X10^6/uL (4.5-5.9); Red Cell Distribution Width 12.9 % (11.6-14.8); White Blood Cell Count 6.8 X10^3/uL (4.5-11.0)
[2021-10-08 00:42] LABS: Alanine Aminotransferase 34 IU/L (<50); Albumin Globulin Ratio 1.5 (1.0-2.8); Alkaline Phosphatase 38 U/L (38-126); Aspartate Aminotransferase 29 IU/L (17-59); BUN Creatinine Ratio 20.7 (6-22); Bilirubin Total 0.5 mg/dL (0.2-1.3); Blood Urea Nitrogen 18 mg/dL (9-20); Carbon Dioxide 26 mmol/L (22-32); Chloride 103 mmol/L (98-107); Estimated Glomerular Filt Rate > 60 mL/min (>60); Globulin 2.6 g/dL (1.7-4.1); Glucose 102 mg/dL (70-100); HEMOLYSIS 46 (0-50); Sodium 137 mmol/L (137-145); Total Protein 6.6 g/dL (6.3-8.2)
[2021-10-08 00:54] LABS: Creatine Kinase 59 U/L (55-170)
[2021-10-08] MEDS: HYDROMORPHONE 0.5 MG INJ IV (00:57)
[2021-10-08] MEDS: SODIUM CHLORIDE 0.9% 1,000 ML 1000 ML IV (00:57)
[2021-10-08] MEDS: FAMOTIDINE 20 MG/2 ML VIAL IV (00:57)
[2021-10-08] MEDS: methylPREDNISolone 125 MG/2 ML VIAL IV (00:57)
--- NOTE | 2021-10-08 00:59 | PC.NURSE ---
Pt is able to lie still after meds; states he feels a bit better.
[2021-10-08 01:07] LABS: Troponin I < 0.012 ng/mL (0.01-0.034)
[2021-10-08 02:02] LABS: Lipase 3374 U/L (23-300)
[2021-10-08 03:01] LABS: COVID19 -Nasal RAPID Negative (Negative)
[2021-10-08] MEDS: SODIUM CHLORIDE 0.9% 1,000 ML 125 ML IV (04:54)
[2021-10-08 08:58] LABS: Add Manual Diff / Slide Review NO; Basophils Absolute Auto 0 /uL (0-100); Eosinophils Absolute Auto 0 /uL (0-450); Hematocrit 42.3 % (41-53); Hemoglobin 14.4 g/dL (13.5-17.5); Lymphocytes Absolute Auto 400 /uL (1100-4500); Lymphocytes Percent Auto 6.4 % (25-40); Mean Corpuscular Hemoglobin 31.1 PG (26-34); Mean Corpuscular Volume 91.5 fL (80-100); Monocytes Absolute Auto 0 /uL (0-900); Monocytes Percent Auto 0.6 % (3-14); Neutrophils Absolute Auto 6400 /uL (1500-7000); Platelet Count 125 X10^3/uL (150-400); Red Blood Cell Count 4.62 X10^6/uL (4.5-5.9); Red Cell Distribution Width 12.9 % (11.6-14.8); White Blood Cell Count 6.9 X10^3/uL (4.5-11.0)
[2021-10-08 09:03] LABS: Alanine Aminotransferase 30 IU/L (<50); Albumin 3.7 g/dL (3.5-5.0); Albumin Globulin Ratio 1.5 (1.0-2.8); Alkaline Phosphatase 41 U/L (38-126); Aspartate Aminotransferase 24 IU/L (17-59); BUN Creatinine Ratio 16.7 (6-22); Bilirubin Total 0.8 mg/dL (0.2-1.3); Blood Urea Nitrogen 14 mg/dL (9-20); Calcium 8.4 mg/dL (8.4-10.2); Carbon Dioxide 24 mmol/L (22-32); Chloride 108 mmol/L (98-107); Estimated Glomerular Filt Rate > 60 mL/min (>60); Globulin 2.4 g/dL (1.7-4.1); Glucose 155 mg/dL (70-100); HEMOLYSIS 17 (0-50); Lipase 1595 U/L (23-300); Potassium 4.6 mmol/L (3.4-5.1); Sodium 137 mmol/L (137-145); Total Protein 6.1 g/dL (6.3-8.2)
--- NOTE | 2021-10-08 11:25 | PC.NURSE ---
Addendum entered by Nahomy Alanis R.N. 10/08/21 11:28: Advised pt of current wait times and IP bed availability. Original Note: Patient concerned about the overall time period between waiting room to ED and ED to IP. Adviised xplained current wait times and
--- NOTE | 2021-10-08 13:20 | PM.HP.1 ---
History of Present Illness History of Present Illness Date Patient Seen: 10/08/21 Time Patient Seen: 13:20 Date of Onset of Symptoms: 10/02/21 Chief complaint: ABD Pain/ Hives Narrative: Patient is a 51-year-old otherwise healthy male who presents with 5 day history of abdominal discomfort really just 2 of those days. Parent Mary was in his usual health when in had a bowel movement then came out and started getting some crampy abdominal pain. He describes it is somewhat cramping mostly upper quadrant no rebound radiation. He went to the bathroom to thought maybe it due to the bathroom and then ended up on the floor and pain. He went to an urgent care and been no organ where he was and at that time they really did not find much they gave him some simple medication and a GI cocktail and seemed to resolve. Patient is had never anything like this he has no history of nausea vomiting heartburn abdominal discomfort otherwise change in his bowel movements urinary changes. He was doing well until last night when he developed again severe pain very similar no radiation to his back no radiation at all. No nausea or vomiting but developed hives and will presented here to the emergency room. At that time they gave him steroids and pain medicine and resolved very quickly both a rash and his abdominal pain. Since then he has been feeling well he has had no other significant changes and seems to be overall doing well. Patient has a distant history of testicular cancer but otherwise quite healthy denies alcohol intake of any significance and has not had any dietary change. Patient History Medical History Testicular cancer Surgical History History of orchiectomy Hx of lymph node excision Family & Social History Family History Brother Hypertension Social History: household members spouse Safety & Behavioral: Feels Safe in Current Yes Environment Tobacco & Substance use: Smoking Status Never smoker alcohol intake current alcohol intake frequency 0-2 drinks per day Substance Use Type does not use Meds Home Medications and Allergies Home Medications Medication Instructions Recorded Confirmed Type lormplqs-atvceire-dhpxk acid 400 1 tab PO DAILY 12/30/18 02/03/21 History mcg-vit K 20 mcg-lycop 300 mcg tablet (Men's Multivitamin) Allergies Allergy/AdvReac Type Severity Reaction Status Date / Time No Known Drug Allergies Allergy Verified 03/01/19 10:55 Review of Systems Review of Systems Narrative: All negative except above Exam Vital Signs (past 8 hours): - 10/08/21 05:30 10/08/21 06:00 10/08/21 06:30 Temperature Pulse Rate 67 78 78 Respiratory Rate 12 18 19 Blood Pressure Pulse Oximetry 94 94 94 10/08/21 07:00 10/08/21 07:30 10/08/21 07:37 Temperature Pulse Rate 77 76 Respiratory Rate 16 15 Blood Pressure 117/66 Pulse Oximetry 92 92 10/08/21 07:37 10/08/21 08:05 10/08/21 08:00 Temperature 97.3 F L Pulse Rate 71 Respiratory Rate 19 Blood Pressure 118/76 Pulse Oximetry 95 10/08/21 08:00 10/08/21 08:30 10/08/21 08:30 Temperature Pulse Rate 71 77 Respiratory Rate 22 22 Blood Pressure 125/84 Pulse Oximetry 94 94 10/08/21 09:00 10/08/21 09:00 10/08/21 09:30 Temperature Pulse Rate 75 Respiratory Rate 21 Blood Pressure 133/82 122/62 Pulse Oximetry 93 10/08/21 09:30 10/08/21 10:00 10/08/21 10:00 Temperature Pulse Rate 70 75 Respiratory Rate 16 17 Blood Pressure 128/72 Pulse Oximetry 92 94 10/08/21 10:30 10/08/21 10:30 10/08/21 11:00 Temperature Pulse Rate 78 82 Respiratory Rate 22 23 Blood Pressure 127/60 Pulse Oximetry 93 94 10/08/21 11:01 10/08/21 11:01 10/08/21 13:03 Temperature Pulse Rate 79 70 Respiratory Rate 22 Blood Pressure 129/78 Pulse Oximetry 95 10/08/21 13:05 10/08/21 13:06 Temperature Pulse Rate 76 Respiratory Rate 16 Blood Pressure 121/71 Pulse Oximetry 94 Oxygen Delivery Method Room Air Narrative Exam Narrative: Alert smiling male sitting in bed no acute distress No icterus mucous membranes moist neck supple without adenopathy lungs are clear heart regular rate and rhythm abdomen is soft positive bowel sounds nontender extremities are normal scans got normal turgor Objective Labs Result Diagrams: 10/08/21 08:30 10/08/21 08:30 Labs: Laboratory Results - last 24 hr 10/08/21 10/08/21 10/08/21 00:15 00:15 00:15 WBC 6.8 RBC 4.73 Hgb 14.6 Hct 43.4 MCV 91.7 MCH 30.8 MCHC 33.6 RDW 12.9 Plt Count 145 L Neut % (Auto) 35.3 L Lymph % (Auto) 51.4 H [place] % (Auto) 9.2 Eos % (Auto) 3.5 Baso % (Auto) 0.6 Neut # (Auto) 2400 Lymph # (Auto) 3500 [place] # (Auto) 600 Eos # (Auto) 200 Baso # (Auto) 0 Sodium 137 Potassium 4.0 Chloride 103 Carbon Dioxide 26 BUN 18 Creatinine 0.87 Estimated GFR > 60 BUN/Creatinine Ratio 20.7 Glucose 102 H Calcium 9.0 Total Bilirubin 0.5 AST 29 ALT 34 Alkaline Phosphatase 38 Total Creatine Kinase 59 CK-MB (CK-2) TNP CK-MB (CK-2) Rel Index TNP Troponin I < 0.012 Total Protein 6.6 Albumin 4.0 Globulin 2.6 Albumin/Globulin Ratio 1.5 Lipase SARS-CoV-2 (PCR) 10/08/21 10/08/21 10/08/21 00:15 02:25 08:30 WBC 6.9 RBC 4.62 Hgb 14.4 Hct 42.3 MCV 91.5 MCH 31.1 MCHC 34.0 RDW 12.9 Plt Count 125 L Neut % (Auto) 93.0 H D Lymph % (Auto) 6.4 L D [place] % (Auto) 0.6 L Eos % (Auto) 0.0 L Baso % (Auto) 0.0 Neut # (Auto) 6400 Lymph # (Auto) 400 L [place] # (Auto) 0 Eos # (Auto) 0 Baso # (Auto) 0 Sodium Potassium Chloride Carbon Dioxide BUN Creatinine Estimated GFR BUN/Creatinine Ratio Glucose Calcium Total Bilirubin AST ALT Alkaline Phosphatase Total Creatine Kinase CK-MB (CK-2) CK-MB (CK-2) Rel Index Troponin I Total Protein Albumin Globulin Albumin/Globulin Ratio Lipase 3374 H SARS-CoV-2 (PCR) Negative 10/08/21 08:30 WBC RBC Hgb Hct MCV MCH MCHC RDW Plt Count Neut % (Auto) Lymph % (Auto) [place] % (Auto) Eos % (Auto) Baso % (Auto) Neut # (Auto) Lymph # (Auto) [place] # (Auto) Eos # (Auto) Baso # (Auto) Sodium 137 Potassium 4.6 Chloride 108 H Carbon Dioxide 24 BUN 14 Creatinine 0.84 Estimated GFR > 60 BUN/Creatinine Ratio 16.7 Glucose 155 H Calcium 8.4 Total Bilirubin 0.8 AST 24 ALT 30 Alkaline Phosphatase 41 Total Creatine Kinase CK-MB (CK-2) CK-MB (CK-2) Rel Index Troponin I Total Protein 6.1 L Albumin 3.7 Globulin 2.4 Albumin/Globulin Ratio 1.5 Lipase 1595 H D SARS-CoV-2 (PCR) Assessment & Plan Assessment & Plan narrative: Pancreatitis. By history it almost sounds gallstone related but he does not have any evidence of gallstones at this time. Does not appear to be alcohol related. No medications that should cause this. But my guess is he passed 1. There does not seem to be any other significant causes will obtain a sed rate and CRP and look at inflammatory markers but I suspect that is not significant at this point we are going to continue NPO IV hydration for 24 hours re-evaluate with labs in the morning and follow from there. He understands. Questions answered goals discussed Small-bowel inflammation. Discussed with surgeons. She does not believe it is related to pancreatitis. She does not think EGD will really help find it is a little bit further possibly viral certainly does not have any symptoms definitive with that. He understands. Will call if change may need repeat CT scan down the road. But I do not think anything at this point appears to be infected. Certainly benign exam. Will follow. History of testicular cancer unlikely involved in this. Will follow. DVT prophylaxis Lovenox GI prophylaxis I do not think he has active GI disease will hold. Disposition. Hopefully things will be improved tomorrow and we can discharge him home with follow-up and workup as outpatient. Time Spent With Patient Critical Care time: I spent a total of [] minutes of critical care time on this patient's care today; this time is exclusive of procedural time.
[2021-10-08] MEDS: ACETAMINOPHEN 325 MG TABLET 650 MG PO ×2 (14:25→18:00)
[2021-10-08] MEDS: ENOXAPARIN 40 MG/0.4 ML SYRINGE SUBCUT (14:26)
[2021-10-08 14:36] LABS: C-Reactive Protein Quant < 0.5 mg/dL (<1.0)
[2021-10-08 14:42] LABS: Erythrocyte Sedimentation Rate 1 MM/HR (0-15)
--- NOTE | 2021-10-08 17:34 | P.CONS_ITS ---
History of Present Illness Consult details Date Patient Seen: 10/08/21 Time Patient Seen: 17:34 Chief complaint: ABD Pain/ Hives Requesting provider: Frederick Sanchez Narrative: abdomen pain. Started when they were in [place] over the weekend. Noted to have pancreatitis with an impressive elevated lipase when seen at a medical facility. Sharp mid abdominal pain occured again today and he came to ED. On my exam the pain is resolved, no nausea and tolerating clear liquids. Has been given steroids as well. H/o testicular cancer. Meds Home Medications and Allergies Home Medications Medication Instructions Recorded Confirmed Type No Known Home Medications 10/08/21 10/08/21 History Allergies Allergy/AdvReac Type Severity Reaction Status Date / Time No Known Drug Allergies Allergy Verified 03/01/19 10:55 Review of Systems Review of Systems ROS: Yes All systems reviewed with the patient and are negative except as othe rwise documented Exam Vital Signs (past 8 hours): - 10/08/21 10:00 10/08/21 10:00 10/08/21 10:30 Temperature Pulse Rate 75 Respiratory Rate 17 Blood Pressure 128/72 127/60 Pulse Oximetry 94 Oxygen Flow Rate 10/08/21 10:30 10/08/21 11:00 10/08/21 11:01 Temperature Pulse Rate 78 82 Respiratory Rate 22 23 Blood Pressure 129/78 Pulse Oximetry 93 94 Oxygen Flow Rate 10/08/21 11:01 10/08/21 13:03 10/08/21 13:05 Temperature Pulse Rate 79 70 76 Respiratory Rate 22 16 Blood Pressure Pulse Oximetry 95 94 Oxygen Flow Rate 10/08/21 13:06 10/08/21 14:12 Temperature 97.5 F L Pulse Rate 75 Respiratory Rate 18 Blood Pressure 121/71 136/86 Pulse Oximetry 97 Oxygen Flow Rate 0 Oxygen Delivery Method Room Air Oxygen Flow Rate 0 Const General: cooperative, healthy appearing and comfortable [facility] Head: normocephalic and atraumatic Eyes General: appearance normal, both eyes and all related structures Sclera: sclerae normal Neck Neck: trachea midline Chest Chest: normal inspection of the chest Resp Effort & Inspection: normal respiratory effort and able to speak in complete sentences Cardio Rate: regular rate Rhythm: regular rhythm GI Inspection: normal to inspection Palpation: soft Other: no real tenderness to palpation Skin General: no rashes or lesions noted and turgor normal Neuro General: patient alert, patient awake and patient oriented x3 Cognition: normal cognition Extrem General: normal to inspection and full ROM Psych Appearance: grossly normal Mental Status: mental status grossly normal Judgment: judgment good Objective Labs Result Diagrams: 10/08/21 08:30 10/08/21 08:30 Labs: Laboratory Results - last 24 hr 10/08/21 10/08/21 10/08/21 00:15 00:15 00:15 WBC 6.8 RBC 4.73 Hgb 14.6 Hct 43.4 MCV 91.7 MCH 30.8 MCHC 33.6 RDW 12.9 Plt Count 145 L Neut % (Auto) 35.3 L Lymph % (Auto) 51.4 H [place] % (Auto) 9.2 Eos % (Auto) 3.5 Baso % (Auto) 0.6 Neut # (Auto) 2400 Lymph # (Auto) 3500 [place] # (Auto) 600 Eos # (Auto) 200 Baso # (Auto) 0 ESR Sodium 137 Potassium 4.0 Chloride 103 Carbon Dioxide 26 BUN 18 Creatinine 0.87 Estimated GFR > 60 BUN/Creatinine Ratio 20.7 Glucose 102 H Calcium 9.0 Total Bilirubin 0.5 AST 29 ALT 34 Alkaline Phosphatase 38 Total Creatine Kinase 59 CK-MB (CK-2) TNP CK-MB (CK-2) Rel Index TNP Troponin I < 0.012 C-Reactive Protein Total Protein 6.6 Albumin 4.0 Globulin 2.6 Albumin/Globulin Ratio 1.5 Lipase SARS-CoV-2 (PCR) 10/08/21 10/08/21 10/08/21 00:15 02:25 08:30 WBC 6.9 RBC 4.62 Hgb 14.4 Hct 42.3 MCV 91.5 MCH 31.1 MCHC 34.0 RDW 12.9 Plt Count 125 L Neut % (Auto) 93.0 H D Lymph % (Auto) 6.4 L D [place] % (Auto) 0.6 L Eos % (Auto) 0.0 L Baso % (Auto) 0.0 Neut # (Auto) 6400 Lymph # (Auto) 400 L [place] # (Auto) 0 Eos # (Auto) 0 Baso # (Auto) 0 ESR Sodium Potassium Chloride Carbon Dioxide BUN Creatinine Estimated GFR BUN/Creatinine Ratio Glucose Calcium Total Bilirubin AST ALT Alkaline Phosphatase Total Creatine Kinase CK-MB (CK-2) CK-MB (CK-2) Rel Index Troponin I C-Reactive Protein Total Protein Albumin Globulin Albumin/Globulin Ratio Lipase 3374 H SARS-CoV-2 (PCR) Negative 10/08/21 10/08/21 10/08/21 08:30 14:23 14:23 WBC RBC Hgb Hct MCV MCH MCHC RDW Plt Count Neut % (Auto) Lymph % (Auto) [place] % (Auto) Eos % (Auto) Baso % (Auto) Neut # (Auto) Lymph # (Auto) [place] # (Auto) Eos # (Auto) Baso # (Auto) ESR 1 Sodium 137 Potassium 4.6 Chloride 108 H Carbon Dioxide 24 BUN 14 Creatinine 0.84 Estimated GFR > 60 BUN/Creatinine Ratio 16.7 Glucose 155 H Calcium 8.4 Total Bilirubin 0.8 AST 24 ALT 30 Alkaline Phosphatase 41 Total Creatine Kinase CK-MB (CK-2) CK-MB (CK-2) Rel Index Troponin I C-Reactive Protein < 0.5 Total Protein 6.1 L Albumin 3.7 Globulin 2.4 Albumin/Globulin Ratio 1.5 Lipase 1595 H D SARS-CoV-2 (PCR) [facility] Medical History Testicular cancer Surgical History History of orchiectomy Hx of lymph node excision Family History Brother Hypertension Social History household members: spouse and children Tobacco & Substance Use Smoking Status: Never smoker alcohol intake: current Assessment & Plan Assessment & Plan narrative: Elevated lipase persist. CT scan reviewed and the pancreas is abnormal at the head and the associated small bowel has intraloop fluid, wall thickening and edematous mesentery. I believe this could be reactive to the pancreatits. Enteritis is also possible to explain the appearance and symptoms Plan: supportive care for the pancreatitis. Will work up further for gallstones using US and lab for triglyceride to evaluate source of pancreatitis. Advance diet if tolerated regarding the edematous small bowel. COVID-19 COVID-19 status: Negative Time Spent With Patient Time with patient: 30 to 49 minutes with 50% spent counseling/coordinating care Critical Care time: I spent a total of [] minutes of critical care time on this patient's care today; this time is exclusive of procedural time.
--- NOTE | 2021-10-09 | DI.US.S_ITS ---
PROCEDURE: US ABDOMEN LIMITED INDICATIONS: GALLSTONES? TECHNIQUE: Real-time focused scanning was performed of the abdomen, with image documentation. COMPARISON: [facility], CT, CT ABDOMEN PELVIS W CON, 10/08/2021, 0:55. FINDINGS: Liver measures 17.1 cm. Main portal vein is patent. Gallbladder is within normal limits. Wall measures 2-3 mm. No cholelithiasis. CBD measures 4-5 mm. Visualized pancreas is within normal limits. IMPRESSION: No cholelithiasis. Dictated by: Jeremy Sun M.D. on 10/09/2021 at 10:17 Approved by: Jeremy Sun M.D. on 10/09/2021 at 10:19
[2021-10-09 05:58] VITALS: BP 136/79; PULSE 71; RESP 18; TEMP 36.1; O2SAT 97
[2021-10-09] MEDS: SODIUM CHLORIDE 0.9% 1,000 ML 125 ML IV (06:04)
[2021-10-09 06:43] LABS: Alanine Aminotransferase 25 IU/L (<50); Albumin 3.6 g/dL (3.5-5.0); Albumin Globulin Ratio 1.3 (1.0-2.8); Alkaline Phosphatase 38 U/L (38-126); Aspartate Aminotransferase 19 IU/L (17-59); BUN Creatinine Ratio 15.9 (6-22); Bilirubin Total 0.9 mg/dL (0.2-1.3); Blood Urea Nitrogen 13 mg/dL (9-20); Calcium 8.4 mg/dL (8.4-10.2); Carbon Dioxide 29 mmol/L (22-32); Chloride 109 mmol/L (98-107); Estimated Glomerular Filt Rate > 60 mL/min (>60); Globulin 2.7 g/dL (1.7-4.1); Glucose 97 mg/dL (70-100); HEMOLYSIS < 15 (0-50); Hemoglobin A1C% w Est Avg Glu 5.3 % (4.0-6.0); Lipase 70 U/L (23-300); Potassium 4.5 mmol/L (3.4-5.1); Sodium 139 mmol/L (137-145); Total Protein 6.3 g/dL (6.3-8.2)
[2021-10-09 06:44] LABS: Triglycerides 89 mg/dL (35-150)
[2021-10-09 09:20] VITALS: BP 139/89; PULSE 61; RESP 18; TEMP 36.2; O2SAT 98
--- NOTE | 2021-10-09 10:51 | P.PN_ITS ---
Subjective Subjective Date Patient Seen: 10/09/21 Time Patient Seen: 08:30 Interval history: clinically improved Exam Vital Signs (past 8 hours): - 10/09/21 05:58 10/09/21 09:20 Temperature 97.0 F L 97.2 F L Pulse Rate 71 61 Respiratory Rate 18 18 Blood Pressure 136/79 139/89 Pulse Oximetry 97 98 Oxygen Flow Rate 0 0 Oxygen Delivery Method Room Air Oxygen Flow Rate 0 Narrative Exam Narrative: tolerating po. abdomen benign Objective Labs Result Diagrams: 10/08/21 08:30 10/09/21 06:07 Labs: Laboratory Results - last 24 hr 10/08/21 10/08/21 10/09/21 14:23 14:23 06:07 ESR 1 Sodium Potassium Chloride Carbon Dioxide BUN Creatinine Estimated GFR BUN/Creatinine Ratio Glucose Hemoglobin A1c Calcium Total Bilirubin AST ALT Alkaline Phosphatase C-Reactive Protein < 0.5 Total Protein Albumin Globulin Albumin/Globulin Ratio Triglycerides 89 Lipase 10/09/21 10/09/21 06:07 06:07 ESR Sodium 139 Potassium 4.5 Chloride 109 H Carbon Dioxide 29 BUN 13 Creatinine 0.82 Estimated GFR > 60 BUN/Creatinine Ratio 15.9 Glucose 97 Hemoglobin A1c 5.3 Calcium 8.4 Total Bilirubin 0.9 AST 19 ALT 25 Alkaline Phosphatase 38 C-Reactive Protein Total Protein 6.3 Albumin 3.6 Globulin 2.7 Albumin/Globulin Ratio 1.3 Triglycerides Lipase 70 D [facility] Medical History Testicular cancer Surgical History History of orchiectomy Hx of lymph node excision Family History Brother Hypertension Social History household members: spouse and children Smoking Status: Never smoker alcohol intake: current Assessment & Plan Assessment & Plan narrative: abdominal pain with inflamed small bowel in a distribution c/w associate inflamation from pancreatitis. CT personally viewed. etiology uncertain ( not anatomical, not ETOH or triglycerids). Hard to prove a single stone passed from gallbladder to get this response but is most logical source. No recommendation for lap ange since there are no stones on US at this point Plan: discharge home with out restrictions COVID-19 COVID-19 status: Positive Time Spent With Patient Time with patient: 30 to 49 minutes with 50% spent counseling/coordinating care Critical Care time: I spent a total of [] minutes of critical care time on this patient's care today; this time is exclusive of procedural time.
--- NOTE | 2021-10-09 11:45 | CM.DANOTE ---
Initial Discharge Assessment: Met with patient and spouse in room. Patient is a 51 year old with children [place] resident. He was admitted yesterday with severe abd pain and hives. His sx have resolved. Dr De Luna in and will discharge patient today per her notes. P: Patient to return home with spouse and previous living arrangement. Spouse to transport. MARIO Discharge Planning/Care Management CM Discharge Assessment Start: 10/09/21 11:44 Freq: Status: Active Protocol: Document 10/09/21 11:44 (Rec: 10/09/21 11:45 [id number]) Discharge Planning Assessment Assigned Assistant Operations Manager Fernanda Chamberlain RN, DCP Advance Directives? No History Provided By Patient Prior Living Arrangements House Household Members spouse,children Type of transporation used prior to Drives own vehicle admit Independent with ADL's Yes Is patient alert and oriented? Yes Caregiver for Another No Barriers to Discharge No Referrals Initiated None needed Whiteboard Updated in Patient Room with Yes name and ext. # of Assistant Operations Manager Review Status In Process Next Review Type Continued Stay Review
--- NOTE | 2021-10-09 13:32 | PM.DS.1 ---
History of Present Illness History of Present Illness Date Patient Seen: 10/09/21 Time Patient Seen: 13:32 Date of Onset of Symptoms: 10/02/21 Chief complaint: ABD Pain/ Hives Narrative: Patient is a 51-year-old otherwise healthy male who presents with 5 day history of abdominal discomfort really just 2 of those days. Parent Mary was in his usual health when in had a bowel movement then came out and started getting some crampy abdominal pain. He describes it is somewhat cramping mostly upper quadrant no rebound radiation. He went to the bathroom to thought maybe it due to the bathroom and then ended up on the floor and pain. He went to an urgent care and been no organ where he was and at that time they really did not find much they gave him some simple medication and a GI cocktail and seemed to resolve. Patient is had never anything like this he has no history of nausea vomiting heartburn abdominal discomfort otherwise change in his bowel movements urinary changes. He was doing well until last night when he developed again severe pain very similar no radiation to his back no radiation at all. No nausea or vomiting but developed hives and will presented here to the emergency room. At that time they gave him steroids and pain medicine and resolved very quickly both a rash and his abdominal pain. Since then he has been feeling well he has had no other significant changes and seems to be overall doing well. Patient has a distant history of testicular cancer but otherwise quite healthy denies alcohol intake of any significance and has not had any dietary change. Discharge Providers Provider Date of admission: 10/08/21 02:53 Discharge Date: 10/09/21 Primary care physician: Abner Chandra MD Consults: 10/08/21 08:58 Consult to Physician Routine Comment: Consulting Provider: Jennifer De Luna Reason for consultation: pancreatitis Has provider been notified: Yes Discharge provider: Frederick Sanchez MD Summary Hospital Course Discharge Diagnosis: Pancreatitis Hospital Course: Pancreatitis. Patient presented with acute pain which resolved relatively rapidly and hives. Patient had no other significant change or issues. He had no further pain throughout his admission. Lipase essentially resolved over the time in the hospital. He was hydrated aggressively and held NPO. Dr. De Luna was consulted for abnormality of his small bowel which was felt to be secondary to his pancreatitis. Pancreas actually look good on CT scan. No other changes. Triglyceride was normal. There had no other significant abnormality ultrasound showed no evidence of stones or of any other changes. It was felt to be secondary to a passed stone and he has no other risk at this time. Patient tolerated food had no further pain was discharged home Status at Discharge Cognitive/behavioral status at discharge: at baseline, oriented Functional status at discharge: independent ambulation Overall status at discharge: patient is back to baseline Exam Vital Signs (past 8 hours): - 10/09/21 05:58 10/09/21 09:20 Temperature 97.0 F L 97.2 F L Pulse Rate 71 61 Respiratory Rate 18 18 Blood Pressure 136/79 139/89 Pulse Oximetry 97 98 Oxygen Flow Rate 0 0 Oxygen Delivery Method Room Air Oxygen Flow Rate 0 Narrative Exam Narrative: Alert smiling male in no acute distress Lungs are clear heart regular rate and rhythm abdomen is soft positive bowel sounds nontender Objective Labs Result Diagrams: 10/08/21 08:30 10/09/21 06:07 Labs: Laboratory Results - last 24 hr 10/08/21 10/08/21 10/09/21 14:23 14:23 06:07 ESR 1 Sodium Potassium Chloride Carbon Dioxide BUN Creatinine Estimated GFR BUN/Creatinine Ratio Glucose Hemoglobin A1c Calcium Total Bilirubin AST ALT Alkaline Phosphatase C-Reactive Protein < 0.5 Total Protein Albumin Globulin Albumin/Globulin Ratio Triglycerides 89 Lipase 10/09/21 10/09/21 06:07 06:07 ESR Sodium 139 Potassium 4.5 Chloride 109 H Carbon Dioxide 29 BUN 13 Creatinine 0.82 Estimated GFR > 60 BUN/Creatinine Ratio 15.9 Glucose 97 Hemoglobin A1c 5.3 Calcium 8.4 Total Bilirubin 0.9 AST 19 ALT 25 Alkaline Phosphatase 38 C-Reactive Protein Total Protein 6.3 Albumin 3.6 Globulin 2.7 Albumin/Globulin Ratio 1.3 Triglycerides Lipase 70 D [facility] Medical History Testicular cancer Surgical History History of orchiectomy Hx of lymph node excision Family History Brother Hypertension Social History household members: spouse and children Smoking Status: Never smoker alcohol intake: current Discharge Plan Discharge Plan Patient Disposition: Home Discharge orders & Medications Prescriptions: No Action No Known Home Medications Follow up/Referrals: Frederick Sanchez MD [Physician] - Abner Chandra MD [Primary Care Provider] - 1 Week (Please call for appointment) Diet/Activity/Treatments Diet: Diet as Tolerated Diet comment: Limit alcohol Skin/Wound/Dressing Care Report to your healthcare provider any signs of infection, such as:: chills, fever and increased pain Visit Report/Discharge Packet Instructions: DI for Pancreatitis, DI for Gallstones, DI for Enteritis Stand Alone Forms: Patient Portal/API Discharge Data Primary Care Provider: Abner Chandra
--- NOTE | 2021-10-09 13:55 | PC.NURSE ---
Pt is dressed and ready for discharge home with Spouse. IV has been removed. Dr. Sanchez has been in to talk with Pt. Went over d/c instructions with Pt and Spouse-discussed d/c meds, time of last dose, reviewed stroke education, encouraged Pt to eat an easy to digest diet and smallish frequent meals. Meds called to [facility] from Dr. Sanchez's Office. Pt out via w/c by [facility] to POV with Spouse and all belongings.
== END 2021-10-09 14:01 | disposition home or self-care (01) | DRG 440 ==
LOC: ED 02:47 → AC 07:51
PROVIDERS: Surgery; Admitting Provider Family Medicine; Emergency Provider Emergency Medicine; Family Provider Family Medicine; PCP Family Medicine; Visit Provider Family Medicine
DX: K85.90 Acute pancreatitis without necrosis or infection, unspecified (principal); Z20.822 Contact with and (suspected) exposure to COVID-19
CPT/HCPCS: 36415; 74177; 76705; 80053; 82550; 83036; 83690; 84478; 84484; 85025; 85651; 86140; 87045; 87635; 87899; 93005; 96374; 96375; 99231; 99284; C9803; J1170; J1650; J2930

== ENCOUNTER → 2022-02-19 12:03 | Outpatient (ROUT) | payer BC, SELFPAY ==
[2021-10-08 14:48] VITALS: BMI 26.8
[2022-02-19 13:23] LABS: Influenza A - CEPHEID Flu A NEGATIVE (NEGATIVE); Influenza B - CEPHEID Flu B NEGATIVE (NEGATIVE); Respiratory Syncytial Virus Negative (Negative)
[2022-02-19 13:51] LABS: COVID-19 CEPHEID 4-PLEX PCR Negative (Negative)
== END ==
PROVIDERS: Family Provider Family Medicine; PCP Family Medicine; Visit Provider Family Medicine
DX: R05.9 Cough, unspecified (principal); J02.9 Acute pharyngitis, unspecified
CPT/HCPCS: 0241U

== ENCOUNTER → 2023-07-22 09:12 | Outpatient (CLI) | payer BC, SELFPAY ==
[2021-10-08 14:48] VITALS: BMI 26.8
[2023-07-22 11:00] LABS: Add Manual Diff / Slide Review NO; Basophils Absolute Auto 0 /uL (0-100); Basophils Percent Auto 0.9 % (0-2); Eosinophils Absolute Auto 100 /uL (0-450); Eosinophils Percent Auto 2.5 % (2-4); Lymphocytes Absolute Auto 1200 /uL (1100-4500); Lymphocytes Percent Auto 24.2 % (25-40); Mean Corpuscular HGB Conc 33.2 % (30-36); Mean Corpuscular Hemoglobin 30.8 PG (26-34); Mean Corpuscular Volume 92.7 fL (80-100); Monocytes Absolute Auto 400 /uL (0-900); Monocytes Percent Auto 7.8 % (3-14); Neutrophils Absolute Auto 3300 /uL (1500-7000); Neutrophils Percent Auto 64.6 % (50-75); Platelet Count 129 X10^3/uL (150-400); Red Blood Cell Count 4.53 X10^6/uL (4.5-5.9); Red Cell Distribution Width 13.2 % (11.6-14.8); White Blood Cell Count 5.1 X10^3/uL (4.5-11.0)
[2023-07-22 11:10] LABS: Alanine Aminotransferase 20 IU/L (<50); Albumin 4.3 g/dL (3.5-5.0); Alkaline Phosphatase 48 U/L (38-126); Aspartate Aminotransferase 22 IU/L (17-59); Bilirubin Total 0.8 mg/dL (0.2-1.3); Blood Urea Nitrogen 16 mg/dL (9-20); Calcium 9.4 mg/dL (8.4-10.2); Carbon Dioxide 30 mmol/L (22-32); Chloride 106 mmol/L (98-107); Estimated Glomerular Filt Rate > 60 mL/min (>60); Globulin 2.1 g/dL (1.7-4.1); Glucose 114 mg/dL (70-100); HEMOLYSIS < 15 (0-50); Potassium 5.2 mmol/L (3.4-5.1); Sodium 138 mmol/L (137-145); Total Protein 6.4 g/dL (6.3-8.2)
== END ==
LOC: LAB 09:13
PROVIDERS: Family Provider Family Medicine; PCP Family Medicine; Referring Provider Physician Assistant; Visit Provider Physician Assistant
DX: L30.9 Dermatitis, unspecified (principal); D22.5 Melanocytic nevi of trunk; L82.1 Other seborrheic keratosis; D18.01 Hemangioma of skin and subcutaneous tissue; L81.4 Other melanin hyperpigmentation; L57.8 Other skin changes due to chronic exposure to nonionizing radiation; Z71.89 Other specified counseling; D48.5 Neoplasm of uncertain behavior of skin
CPT/HCPCS: 36415; 80053; 85025